=== PATIENT | female | born 1975 | race Caucasian/White ===

== ENCOUNTER 2016-07-19 06:03 | Inpatient (IN) | payer OTHER ==
--- NOTE | 2016-07-18 14:45 | HP ---
DATE OF CLINIC: 07/04/2016 MAGDA RUVALCABA : 1975 PLANNED PROCEDURE: Left Total Hip Arthroplasty DATE OF SURGERY: July 19, 2016 SURGEON: Magdaleno Fisher M.D. HISTORY OF PRESENT ILLNESS Magda Ruvalcaba is a 40 year old female. * Medication list reviewed with patient allergy list reviewed with patient. This is a 40-year-old female with persistent left hip pain. She states that it has been continuing to really limit her ability both to work and to do the activities that she desires in her social life. She is interested in pursuing total hip arthroplasty to address these limitations. She has been working on cutting back on her smoking and trying to get some of her other medical issues under better control in preparation for surgery sometime in July 2016. She currently rates her pain about a 3/10, localizes all of it to her left hip. After discussion and review of treatment options, both operative and non-operative, she has elected to proceed with surgery and presents today preoperatively. PAST MEDICAL AND SURGICAL HISTORY: Her past medical and surgical history is unchanged. She has cut back significantly on the amount that she is smoking and is trying to get her medications under better control. CURRENT MEDICATION * Lisinopril-Hydrochlorothiazide 20-12.5 MG Tablet take 1 tablet by mouth once daily, 30 days, 3 refills * Triamcinolone Acetonide 0.1 % Cream Apply twice daily to affected area, 0 days, 0 refills * Venlafaxine HCl ER 150 MG Tablet, extended-release 24 hour TB24, take 1 tablet by mouth daily, 30 days, 2 refills PAST MEDICAL/SURGICAL HISTORY Reported: No recent change in medical history. LMP: 3 days of flow, regular 28-30 days. Menses started age 14. No history of abnormal PAP. Medical: History of Arthritis, Depression, and Hypertension. Surgical / Procedural: Prior surgery Tubal ligation 11/2006. Physical Trauma: Open reduction internal fixation ORIF at age 17. : 2 and para 2. Other: Cervical Pap smear 1999 Depression/Anxiety Left hip fracture age 17 Tubal ligation Psoriasis. SOCIAL HISTORY Social history unchanged. Behavioral: Caffeine use 1-2 cups daily, current smoker 1/2 pack/day, and smoking status: Current everyday smoker. Alcohol: Alcohol use 1/month or less. Drug Use: Drug use -- marijuana edibles. Home Environment: Lives alone with boyfriend. 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 Sexual: control method: tubal ligation. Has a boyfriend. Two children aged 10 and 8 years. 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 ALLERGIES * Onions * Wellbutrin Reaction: Hypertensive FAMILY HISTORY 2 children living Father: Diabetes, [place] (first time in 40s), CVA Mother: Good health Sister: Diabetes Family medical history Father: Diabetes, Stroke REVIEW OF SYSTEMS No recent constitutional symptoms to include fevers and chills. No cardiovascular symptoms to include chest pain or palpitations. No respiratory symptoms to include shortness of breath or recent infections. PHYSICAL FINDINGS * Vitals taken 07/04/2016 03:57 pm BP-Sitting L 142/99 mmHg Pulse Rate-Sitting 81 bpm Temp-Oral 97.9 F Height 65 in Weight 187 lbs 3.2 oz Body Mass Index 31.2 kg/m2 Body Surface Area 1.92 m2 Pain Level 6 Ears, Nose, Throat: * ENT: normal. Lungs: * Clear to auscultation. Cardiovascular: Heart Rate and Rhythm: * Normal. Abdomen: * Normal. Neurological: Motor: * Dominant Hand = Right Hand. Patient is a well-developed, well-nourished female in no acute distress. They are awake, alert and conversant throughout the encounter. CARDIOVASCULAR: Intact peripheral pulses on bilateral lower extremities. No significant edema on inspection of bilateral lower extremities. NEUROLOGIC: Patient had intact coordinated composite motion of the bilateral lower extremities and sensation intact to light touch in all distributions of bilateral lower extremities. PSYCHIATRIC: Patient was oriented to person, place and time and displayed appropriate mood and affect during the encounter. SKIN: Exam of the skin on bilateral lower extremities showed no significant scars, lesions, rashes or masses. FOCUSED MUSCULOSKELETAL EXAM: The patient has antalgic gait favoring her left side with a mild Trendelenburg lurch. Normal resting station of the hips, knees and ankles. Her left hip shows no erythema, ecchymosis or swelling. She is tender to palpation in the groin crease and at the greater trochanter. Limited range of motion with 5 degrees of extension from neutral, 80 degrees of flexion. She is an obligate external rotator. She abducts about 15 degrees with her hip in full extension and she can do a straight leg raise only a few centimeters off of the table. This gives her significant pain in her groin crease. Within her range of motion her strength is 5/5 without any evidence of instability. She is normal resting tone and well perfused legs and normal sensation. IMAGING No new x-rays today. Previous films show [id number] arthrosis with significant deformity of her proximal femur secondary to a completed femoral neck stress fracture. She also has subchondral cysts and significant osteophyte formation on the acetabular side. ASSESSMENT A 40-year-old female eager to proceed with a left total hip arthroplasty. PREVIOUS TESTS * Test: CBC NO DIFF Report Date: 06/28/2016 WBC 9.1 10*3/mL MCV 83.0 fL RBC 5.07 10*6/uL MCH 29.8 pg MCHC 35.9 g/dL RDW 12.4 % PLATELET COUNT 367 10*3/mL HCT 42.1 % HGB 15.1 g/L * Test: COMPREHENSIVE METABOLIC PANEL Report Date: 06/28/2016 ALT/SGPT 15 U/L ALBUMIN 4.2 g/dL ALB/GLOB RATIO 1.4 BUN 12 mg/dL BUN/CREAT RATIO 24 High CALCIUM 9.3 mg/dL GLUCOSE 88 mg/dL CREATININE 0.5 mg/dL Low SODIUM 138 meq/L POTASSIUM 4.1 meq/L CHLORIDE 103 meq/L CARBON DIOXIDE 27 meq/L ANION GAP 12 meq/L TOT PROTEIN 7.2 g/dL GLOBULIN 3.0 g/dL BILI,TOTAL 0.4 mg/dL AST/SGOT 14 U/L ALK PHOSPHATASE 57 U/L GFR 138 High * Test: URINALYSIS WITH MICROSCOPIC Report Date: 06/28/2016 EPITHELIAL CELL 5-10 WBC 5-10 GLUCOSE NEGATIVE BACTERIA 1+ PH,URINE 5.0 SPEC. GRAVITY 1.015 KETONE NEGATIVE NITRITE NEGATIVE RBC 1-2 BLOOD TRACE BILIRUBIN NEGATIVE APPEARANCE CLEAR PROTEIN NEGATIVE COLOR YELLOW LEUK ESTERASE 2+ UROBILINOGEN NORMAL AMORPH SEDIMENT FEW * Test: PROTHROMBIN TIME Report Date: 06/28/2016 PROTIME 9.4 s INR 0.90 * Test: PARTIAL THROMBOPLASTIN TIME Report Date: 06/28/2016 APTT 24.6 s * Test: MRSA SCREEN Report Date: 06/29/2016 MRSA SCREEN NEGATIVE * Test: MSSA SCREEN Report Date: 06/29/2016 MSSA SCREEN NEGATIVE FOR STAPHYLOCOCCUS AUREUS THERAPY * Patient not eligible for fall risk assessment. PLAN * Unilateral post-traumatic osteoarthritis, left hip OxyCONTIN 10 MG T12A, Take 1 tablet by mouth every 12 hours for baseline pain control; no refills, 10 days, 0 refills OxyCODONE HCl 5 MG TABS, Take 1-2 tablets by mouth every 4-6 hours as needed for severe breakthrough pain. Call 3 days prior to running out of meds for refills., 14 days, 0 refills TraMADol HCl 50 MG TABS, Take 1-2 tabs by mouth every 6-8 hours as needed for moderate breakthrough pain. Call 3 days prior to running out for refills., 14 days, 0 refills * Total hip replacement -Left CARE TEAM Rachelle Sands, DNP SURGICAL CONSENT We have discussed surgical options including left GAGAN and non-operative management. The patient was counseled in detail regarding the diagnosis, treatment options available, prognosis of each treatment option and the potential risks and complications. The risks of surgery include, but are not limited to, anesthetic , neurovascular complications, pulmonary embolism, deep vein thrombosis, wound dehiscence, failure of any or all of the discussed procedures, infection of the joint or surrounding soft tissue, need for revision surgery, chronic pain, limitations in activities of daily living, inability to return to work, and loss of normal range of motion or functional use of the extremity. There is the possibility of failure over time that may require additional operative or non-operative treatment. The patient acknowledged that there are a number of perioperative risks not mentioned here and would still like to proceed. The patient is aware of and understands these risks, and wishes to proceed with the proposed surgical procedure and other procedures as indicated at the time of surgery. We will have the patient see their PCP for a preoperative medical risk assessment. The preoperative instructions were reviewed with the patient and all questions were answered. PB/sg
[~2016-07-19 06:03] MED LIST: CEFAZOLIN SODIUM 2 GRAM DUPLEX 50 ML IV PRN; CELECOXIB 200 MG CAPSULE ONE; CELECOXIB 200 MG CAPSULE PO ONE; CLONIDINE HCL 0.1 MG/24 HR (7 DAY PATCH) TD ONE; CLONIDINE HCL 0.1 MG/24 HR (7 DAY PATCH) TD SCH; FAMOTIDINE 20 MG TABLET ONE; FAMOTIDINE 20 MG TABLET PO ONE; GABAPENTIN 600 MG TABLET ONE; GABAPENTIN 600 MG TABLET PO ONE; IV START KIT ONE; LACTATED RINGERS 1,000 ML ONE; ONDANSETRON 4 MG/2ML 2 ML VIAL IV ONE; ONDANSETRON 4 MG/2ML 2 ML VIAL ONE; OXYCODONE HCL 10 MG TAB.SR PO ONE; TRAMADOL HCL 50 MG TABLET ONE; TRAMADOL HCL 50 MG TABLET PO ONE
[2016-07-19] MEDS ORDERED: TRANEXAMIC ACID 1,000 MG in SODIUM CHLORIDE 0.9% 100 ML IV PRN (07:50)
[2016-07-19] MEDS ORDERED: BUPIVACAINE 0.25% (MDV) 24 ML, MORPHINE SULFATE 8 MG, EPINEPHRINE 0.3 MG in SODIUM CHLO... IF PRN (07:50)
[2016-07-19] MEDS ORDERED: POLYMYXIN B SULFATE 500,000 UNITS, BACITRACIN 25,000 UNITS in SODIUM CHLORIDE 3 L IRRIG... IR PRN (07:50)
[2016-07-19] MEDS ORDERED: BUPIVACAINE 0.25% (MDV) 20 ML in SODIUM CHLORIDE 0.9% FLUSH 20 ML IF PRN (07:50)
[2016-07-19] MEDS ORDERED: MIDAZOLAM HCL 1 MG/ML 2ML VIAL ONE (08:32)
[2016-07-19] MEDS ORDERED: MIDAZOLAM HCL 5 MG/5 ML VIAL ONE ×3 (08:44→11:10)
[2016-07-19] MEDS ORDERED: FENTANYL 100 MCG/2 ML VIAL ONE (08:44)
[2016-07-19] MEDS ORDERED: LABETALOL HCL 5 MG/ML 20ML VIAL IV PRN (09:06)
[2016-07-19] MEDS ORDERED: PROMETHAZINE HCL 25 MG/ML VIAL IM PRN (09:06)
[2016-07-19] MEDS ORDERED: ONDANSETRON 4 MG/2ML 2 ML VIAL IV PRN ×2 (09:06→12:56)
[2016-07-19] MEDS ORDERED: ATROPINE SULFATE 0.4 MG/1 ML VIAL IV PRN (09:06)
[2016-07-19] MEDS ORDERED: MEPERIDINE 25 MG/ML SYRINGE IV PRN (09:06)
[2016-07-19] MEDS ORDERED: NALOXONE HCL 0.4 MG/ML VIAL IV PRN (09:06)
[2016-07-19] MEDS ORDERED: MORPHINE SULFATE 4 MG/ML SYRINGE IV PRN (09:06)
[2016-07-19] MEDS ORDERED: LACTATED RINGERS 1,000 ML IV SCH (09:15)
[2016-07-19] MEDS ORDERED: DIPHENHYDRAMINE HCL 50 MG/1 ML VIAL ONE (10:41)
[2016-07-19] MEDS ORDERED: BUPIVACAINE 0.75% SPINAL AMPUL 2 ML ONE (10:41)
[2016-07-19] MEDS ORDERED: FAMOTIDINE 10 MG/ML 2ML VIAL ONE (10:41)
[2016-07-19] MEDS ORDERED: METOCLOPRAMIDE HCL 5 MG/ML 2ML VIAL ONE (10:41)
[2016-07-19] MEDS ORDERED: SPINAL PROCEDURAL TRAY 1 EACH ONE (10:41)
--- NOTE | 2016-07-19 11:21 | RAD ---
AP PELVIS HISTORY: Intraoperative imaging. Frontal view of the pelvis. POSTPROCEDURAL CHANGE: Postsurgical change with surgical remodeling of the left acetabulum and resection of the left femoral head. Soft tissue gas is noted. IMPRESSION: Intraoperative imaging of the pelvis for procedural planning.
--- NOTE | 2016-07-19 11:56 | RAD ---
PELVIS COMPARISON: Left hip, 06/21/2015 and bone length study 04/17/2016. Left hip intraoperative radiograph 07/19/2016. HISTORY: Immediately postop left total hip arthroplasty. FINDINGS: Views: AP pelvis. Bones: Normal. Joints: Satisfactory appearance of the left hip total uncemented arthroplasty. Soft tissues: Incision filled with air lateral to the left hip, extending to the prosthesis. IMPRESSION: 1. Satisfactory positioning of the left total hip uncemented arthroplasty.
--- NOTE | 2016-07-19 12:07 | PCMBPN ---
Brief Post Op Note: Date of Procedure: 07/19/16 Start Time: 929 Preoperative Diagnosis: 1. left hip posttraumatic arthritis Postoperative Diagnosis: 1. Same Procedure: left total hip arthroplasty Surgeon: Magdaleno Fisher MD Assist: Leonel Mg PA-C Anesthesia: Haven Montiel Findings: as above Condition: stable to PACU Complications: intraoperative proximal femur fracture treated with 2 cerclage cables IV Fluids: 2500 mLs of LR Urine Output: 100 mLs Estimated Blood Loss: 500 mLs Tourniquet Time: none Specimens: none Implants: DePuy [place] cup 56 mm, 56/36 ceramic liner, Trilock 5 high offset stem, 36 mm ceramic head +8.5 Drains: none Magdaleno Fisher MD
[2016-07-19] MEDS ORDERED: LACTATED RINGERS 1,000 ML ONE (12:08)
[2016-07-19] MEDS ORDERED: TRAMADOL HCL 50 MG TABLET PO PRN (12:56)
[2016-07-19] MEDS ORDERED: HYDROXYZINE PAMOATE 25 MG CAPSULE PO PRN (12:56)
[2016-07-19] MEDS ORDERED: HYDROMORPHONE HCL 0.5 MG/0.5 ML SYRINGE IV PRN (12:56)
[2016-07-19] MEDS ORDERED: KETOROLAC TROMETHAMINE 30 MG/ML 1 ML VIAL IV PRN (12:56)
[2016-07-19] MEDS ORDERED: CALCIUM CARBONATE 500 MG TAB.CHEW PO PRN (12:56)
[2016-07-19] MEDS ORDERED: OXYCODONE HCL 5 MG TABLET PO PRN (12:56)
[2016-07-19] MEDS ORDERED: TRAZODONE HCL 50 MG TABLET PO PRN (12:56)
--- NOTE | 2016-07-19 13:51 | RAD ---
PELVIS 07/19/2016 12:21 COMPARISON: Pelvis one view, 07/19/2016 11:04 HISTORY: Postop left hip uncemented arthroplasty. FINDINGS: Views: AP pelvis. Bones: Normal. Joints: Satisfactory positioning of the left total hip arthroplasty. Soft tissues: Normal postoperative appearance with lateral skin sendy. IMPRESSION: 1. Satisfactory appearance of the left total hip uncemented arthroplasty.
[2016-07-19 15:31] VITALS: BMI 31.1
[2016-07-19] MEDS ORDERED: PUMP TUBING ONE (18:13)
[2016-07-19] MEDS: CEFAZOLIN SODIUM 1 GRAM PREMIX 1 G in Premix (D5W) 50 ml 1 EACH IV SCH (18:24)
[2016-07-19] MEDS: D5 1/2NS with 20 mEq KCL 1,000 ML IV SCH (18:25)
[2016-07-19] MEDS: ACETAMINOPHEN 500 MG TABLET PO SCH ×2 (19:52→19:59)
[2016-07-19] MEDS: DOCUSATE SODIUM 100 MG CAPSULE PO SCH (20:06)
[2016-07-19] MEDS: OXYCODONE HCL 10 MG TAB.SR PO SCH (20:08)
[2016-07-19] MEDS: ASCORBIC ACID 500 MG TABLET PO SCH (20:08)
[2016-07-20] MEDS: D5 1/2NS with 20 mEq KCL 1,000 ML IV SCH (00:29)
[2016-07-20] MEDS: ACETAMINOPHEN 500 MG TABLET PO SCH ×4 (01:33→20:36)
[2016-07-20] MEDS: CEFAZOLIN SODIUM 1 GRAM PREMIX 1 G in Premix (D5W) 50 ml 1 EACH IV SCH (01:33)
[2016-07-20] MEDS ORDERED: REMOVE PATCH 1 EACH UNIT TD SCH (05:45)
[2016-07-20 06:44] LABS: HEMOGLOBIN 9.5 gm/l (12.0-16.0); MEAN CELL VOLUME 84.4 fl (81.0-99.0); MEAN CORPUSCULAR HEMOGLOBIN 29.7 pg (27.0-31.0); MEAN CORPUSCULAR HGB CONC 35.2 g/dl (33.0-37.0); RED CELL DISTRIBUTION WIDTH 12.2 % (11.5-14.5)
[2016-07-20 06:59] LABS: CALCIUM 7.9 mg/dL (8.6-10.3)
[2016-07-20] MEDS: VENLAFAXINE HCL XR 150 MG CAPSULE.DR PO SCH ×2 (07:36→10:00)
--- NOTE | 2016-07-20 08:32 | PDOC43 ---
- Subjective Findings: POD1 Left GAGAN. Moderate pain today left hip with leg paresthesia. Subjective: Reports Pain Tolerable, Denies Chest Pain, Denies Shortness of Breath, Denies Nausea, Denies Vomiting - Objective Vital Signs Temperature 98.2 F 07/20/16 08:00 Pulse Rate 90 07/20/16 08:00 Respiratory Rate 18 07/20/16 08:00 Blood Pressure 132/98 07/20/16 08:00 O2 Saturation by Pulse Oximetry 100 07/20/16 08:00 Oxygen Delivery Method Nasal Cannula Oxygen Flow Rate 2 Laboratory 07/20/16 06:00 07/20/16 06:00 07/20/16 06:00 RBC 3.20 L Estimated GFR 137 H Calcium 7.9 L Active Medication Orders Category Date Time Status Acetaminophen [Tylenol] Med 07/20/16 02:00 Active 1,000 mg PO Q6H Ascorbic Acid [Vitamin C] Med 07/19/16 21:00 Active 500 mg PO BID Aspirin (Enteric Coated) [Ecotrin] Med 07/20/16 09:00 Active 325 mg PO DAILY Bisacodyl [Dulcolax] Med 07/22/16 11:55 Active 10 mg [place] DAILY PRN Calcium Carbonate [Tums] Med 07/19/16 12:56 Active 1,000 - 2,000 mg PO Q2H PRN Docusate Sodium [Colace] Med 07/19/16 21:00 Active 100 mg PO BID Hydrochlorothiazide Med 07/20/16 09:00 Active 12.5 mg PO DAILY Hydromorphone HCl [Dilaudid] Med 07/19/16 12:56 Active 0.5 mg IV Q1H PRN Hydroxyzine Pamoate [Vistaril] Med 07/19/16 12:56 Active 25 - 50 mg PO Q4H PRN Ketorolac Tromethamine [Toradol] Med 07/19/16 12:56 Active 30 mg IV Q6H PRN Lisinopril [Prinivil] Med 07/20/16 09:00 Active 1 mg PO QAM Magnesium Hydroxide [Milk of Magnesia] Med 07/20/16 11:55 Active 30 ml PO DAILY PRN Multivitamins [One-A-Day] Med 07/20/16 09:00 Active 1 tab PO DAILY Ondansetron 4 mg/2ml Vial [Zofran] Med 07/19/16 12:56 Active 4 - 6 mg IV Q6H PRN Oxycodone HCl [Roxicodone] Med 07/19/16 12:56 Active 5 - 10 mg PO Q4H PRN Oxycodone Sr [Oxycontin] Med 07/19/16 21:00 Active 10 mg PO Q12HR Remove Patch Med 07/20/16 11:55 Once 1 each TD X1 ONE Sodium Chloride 0.9% Flush [Normal Saline 10ml Flush] Med 07/19/16 12:56 Active 10 - 50 ml IV PRN PRN Tramadol HCl [Ultram] Med 07/19/16 12:56 Active 50 mg PO Q6H PRN Trazodone HCl [Desyrel] Med 07/19/16 12:56 Active 25 mg PO BEDTIME PRN Venlafaxine HCl Xr [Effexor Xr] Med 07/20/16 09:00 Active 150 mg PO QAM Intake and Output 07/18/16 07/19/16 07/20/16 23:59 23:59 23:59 Intake Total 4750 1974 Output Total 820 550 Balance 3930 1424 General: Afebrile Lungs: Normal Air Movement Skin: Normal Color, Warm, Dry - Left Lower Extremity Incision: Dressing Clean/Dry/Intact, Well Approximated, Nnamdi Intact, No Dressing Saturated, No Drainage, No Erythema Motor: Extensor Hallucis Longus: 5/5, Tibialis Anterior: 5/5, Gastrocnemius: 5/5 , Peroneals: 5/5 Gross Sensation to Light Touch: Present: Deep Peroneal Nerve, Superficial Peroneal Nerve - Problems (1) Status post total hip replacement, left Status: Acute - Additional Comments POD1 Left GAGAN. Moderate left hip pain with leg paresthesia. Sensation intact to touch. 1. Physical Therapy: WBAT with FWW. 2. Pain Control: Multimodal pain control as needed. 3. DVT Prophylaxis: ASA 325mg daily, mobilization 4. Disposition: Plan for discharge home Sunday. 5. Medical Issues: No new medical problems.
[2016-07-20] MEDS ORDERED: MULTIVITAMINS 1 TAB TABLET PO SCH (09:00)
[2016-07-20] MEDS ORDERED: LISINOPRIL 20 MG TABLET PO SCH (09:00)
[2016-07-20] MEDS: MULTIVITAMINS 1 TAB TABLET PO SCH (09:50)
[2016-07-20] MEDS: OXYCODONE HCL 10 MG TAB.SR PO SCH ×2 (09:50→20:36)
[2016-07-20] MEDS: ASCORBIC ACID 500 MG TABLET PO SCH ×2 (09:50→20:36)
[2016-07-20] MEDS: DOCUSATE SODIUM 100 MG CAPSULE PO SCH ×2 (09:50→20:36)
[2016-07-20] MEDS: ASPIRIN (ENTERIC COATED) 325 MG TABLET.EC PO SCH (09:50)
[2016-07-20] MEDS: HYDROCHLOROTHIAZIDE 12.5 MG CAP PO SCH (09:50)
[2016-07-20] MEDS: LISINOPRIL 20 MG TABLET PO SCH (10:00)
[2016-07-20] MEDS ORDERED: MAGNESIUM HYDROXIDE 30 ML UDCUP PO PRN (11:55)
[2016-07-20] MEDS ORDERED: REMOVE PATCH 1 EACH UNIT TD ONE (11:55)
[2016-07-21] MEDS: ACETAMINOPHEN 500 MG TABLET PO SCH ×3 (02:14→15:00)
[2016-07-21 06:09] LABS: HEMATOCRIT 26.2 % (37.0-47.0); HEMOGLOBIN 9.1 gm/l (12.0-16.0)
[2016-07-21 07:30] VITALS: BP 122/77
--- NOTE | 2016-07-21 08:30 | PDOC43 ---
- Subjective Subjective: Reports Pain Tolerable - Objective Vital Signs Temperature 98.1 F 07/21/16 07:29 Pulse Rate 85 07/21/16 07:29 Respiratory Rate 16 07/21/16 07:29 Blood Pressure 122/77 07/21/16 07:29 O2 Saturation by Pulse Oximetry 98 07/21/16 07:29 Oxygen Delivery Method Room Air Oxygen Flow Rate 0 Laboratory 07/21/16 05:30 07/20/16 06:00 Active Medication Orders Category Date Time Status Acetaminophen [Tylenol] Med 07/20/16 02:00 Active 1,000 mg PO Q6H Ascorbic Acid [Vitamin C] Med 07/19/16 21:00 Active 500 mg PO BID Aspirin (Enteric Coated) [Ecotrin] Med 07/20/16 09:00 Active 325 mg PO DAILY Bisacodyl [Dulcolax] Med 07/22/16 11:55 Active 10 mg [place] DAILY PRN Calcium Carbonate [Tums] Med 07/19/16 12:56 Active 1,000 - 2,000 mg PO Q2H PRN Docusate Sodium [Colace] Med 07/19/16 21:00 Active 100 mg PO BID Hydrochlorothiazide Med 07/20/16 09:00 Active 12.5 mg PO DAILY Hydromorphone HCl [Dilaudid] Med 07/19/16 12:56 Active 0.5 mg IV Q1H PRN Hydroxyzine Pamoate [Vistaril] Med 07/19/16 12:56 Active 25 - 50 mg PO Q4H PRN Lisinopril [Prinivil] Med 07/20/16 10:00 Active 20 mg PO QAM Magnesium Hydroxide [Milk of Magnesia] Med 07/20/16 11:55 Active 30 ml PO DAILY PRN Multivitamins [One-A-Day] Med 07/20/16 09:00 Active 1 tab PO DAILY Ondansetron 4 mg/2ml Vial [Zofran] Med 07/19/16 12:56 Active 4 - 6 mg IV Q6H PRN Oxycodone HCl [Roxicodone] Med 07/19/16 12:56 Active 5 - 10 mg PO Q4H PRN Oxycodone Sr [Oxycontin] Med 07/19/16 21:00 Active 10 mg PO Q12HR Sodium Chloride 0.9% Flush [Normal Saline 10ml Flush] Med 07/19/16 12:56 Active 10 - 50 ml IV PRN PRN Sodium Chloride 0.9% Flush [Normal Saline 10ml Flush] Med 07/20/16 17:00 Active 10 ml IV Q8HR Tramadol HCl [Ultram] Med 07/19/16 12:56 Active 50 mg PO Q6H PRN Trazodone HCl [Desyrel] Med 07/19/16 12:56 Active 25 mg PO BEDTIME PRN Venlafaxine HCl Xr [Effexor Xr] Med 07/20/16 09:00 Active 150 mg PO QAM Intake and Output 07/19/16 07/20/16 07/21/16 23:59 23:59 23:59 Intake Total 4750 2174 100 Output Total 820 1310 600 Balance 3930 864 -500 General: Afebrile Lungs: Normal Air Movement Skin: Normal Color, Warm, Dry - Left Lower Extremity Incision: Dressing Clean/Dry/Intact, Well Approximated, Nnamdi Intact, No Erythema Motor: Extensor Hallucis Longus: 5/5, Tibialis Anterior: 5/5, Gastrocnemius: 5/5 , Peroneals: 5/5, Quadriceps: 3/5 Gross Sensation to Light Touch: Present: Deep Peroneal Nerve, Superficial Peroneal Nerve, Medial Plantar Nerve, Lateral Plantar Nerve - Problems (1) Status post total hip replacement, left Status: Acute - Additional Comments POD1 Left GAGAN. Moderate left hip pain with improving leg paresthesia. Sensation intact to touch. 1. Physical Therapy: WBAT with FWW. 2. Pain Control: Multimodal pain control as needed. 3. DVT Prophylaxis: ASA 325mg daily, mobilization 4. Disposition: Plan for discharge home today. 5. Medical Issues: No new medical problems.
--- NOTE | 2016-07-21 08:35 | PDOC5 ---
ADMIT DATE: 07/19/16 DISCHARGE DATE: 07/21/16 ADMISSION DIAGNOSES: Left Hip Arthritis PROCEDURES PERFORMED THIS HOSPITALIZATION: Left Total Hip Replacement SURGEON:Magadleno Fisher MD CONSULTATIONS: None BRIEF HISTORY:This is a 41 year old with left hip osteoarthritis who underwent a total hip replacement with Dr. Fisher on 07/19/16. BRIEF HOSPITAL COURSE: Patient has been recovering on MED/Surg and progressing with PT and appears ready for discharge home today. Her postop pain is controlled and patient feels ready for discharge home today. - Discharge Diagnosis (1) Status post total hip replacement, left Status: Acute - Discharge Plan Additional Instructions: PROCEDURE: Left total hip arthroplasty (replacement) 1.) Dressings: may remove dressings on POD#4 and shower normally, let water run over incision and pat dry, but do not submerge or scrub incision. Cover with clean dressing and then change dressing every day until completely dry. 2.) Activity: may bear weight as tolerated with assistive device at all times. Outpatient PT as previously scheduled. Daily exercises as instructed by PT. Posterior hip precautions at all times as instructed. 3.) Medications: a.) Oxycontin: long-acting pain medication taken morning and evening for 10 days, no refills b.) Tramadol: as-needed pain medication for mild to moderate breakthrough pain (call for refills 3-4 days before running out) c.) Oxycodone: as-needed pain medication for severe breakthrough pain (call for refills 3-4 days before running out) d.) Aspirin 325 mg (over-the counter): one tab daily for 4 weeks for prevention of blood clots e.) Colace: stool softener to help prevent constipation, taken twice a day as long as you are on narcotics; if continued constipation, get Magnesium Citrate [id number] and use per instructions every 12 hours until you have a bowel movement. 4.) Followup: August 01 at 9:00 AM at the [facility] with Leonel Mg PA-C. Call [phone] to confirm your appointment and location. 5.) Questions: call my office ([phone]) with any questions or concerns. Go to ED or call 911 for any acute changes in health status or emergencies. Magdaleno Fisher MD Follow-Up: Skyler Mg PA [Physician Manager Laboratory] - 08/01/16 9:45 am
[2016-07-21] MEDS: DOCUSATE SODIUM 100 MG CAPSULE PO SCH (08:40)
[2016-07-21] MEDS: VENLAFAXINE HCL XR 150 MG CAPSULE.DR PO SCH (08:40)
[2016-07-21] MEDS: ASCORBIC ACID 500 MG TABLET PO SCH (08:40)
[2016-07-21] MEDS: ASPIRIN (ENTERIC COATED) 325 MG TABLET.EC PO SCH (08:40)
[2016-07-21] MEDS: HYDROCHLOROTHIAZIDE 12.5 MG CAP PO SCH (08:40)
[2016-07-21] MEDS: MULTIVITAMINS 1 TAB TABLET PO SCH (08:40)
[2016-07-21] MEDS: OXYCODONE HCL 10 MG TAB.SR PO SCH (08:40)
[2016-07-21] MEDS: LISINOPRIL 20 MG TABLET PO SCH (08:40)
--- NOTE | 2016-07-21 13:39 | OP ---
Damaris WHITLEY : 1975 [id number] DATE OF SERVICE: July 19, 2016 PREOPERATIVE DIAGNOSIS: Left hip posttraumatic osteoarthritis. POSTOPERATIVE DIAGNOSIS: Left hip posttraumatic osteoarthritis. PROCEDURE PERFORMED: LEFT TOTAL HIP ARTHROPLASTY. SURGEON: Magdaleno Fisher M.D. ACID FILLER: Skyler Mg P.A.-C. ANESTHESIA: Haven Montiel C.R.N.A. SPECIMENS: No material was sent to the laboratory. ESTIMATED BLOOD LOSS: 500 mL. FLUIDS REPLACED: 2500 mL of crystalloid. URINE OUTPUT: 100 mL. TOURNIQUET: None. IMPLANTS: DePuy Winnfield cup size 56, size TriLock stem size 5 high offset. We used a neutral 36 for a 56 ceramic liner and a 36 + 8.5 ceramic head. INDICATIONS: Patient is a 41-year-old female with severe left hip osteoarthritis secondary to a prior completed femoral neck stress fracture. This has failed to respond to a course of nonoperative measures. Patient has exam and radiographic findings, which support this diagnosis. In order to restore patient's ability to participate in desired level of activities they were offered a total hip arthroplasty. The risks, benefits and alternatives of therapy were discussed with the patient at length and they elected to proceed with surgery. The patient underwent preoperative clearances. Informed consent was obtained and documented in the chart and the patient was placed on the schedule at the first available convenience. DESCRIPTION OF PROCEDURE: The patient was identified in the pre-operative holding area where they were marked with an indelible marker by the operating surgeon. Patient was taken to the operating room where they underwent a spinal anesthetic and then was positioned on the left side using a pegboard for intraoperative positioning. An axillary roll was placed and all bony prominences were padded. The patient was prepped and draped in the usual sterile fashion for surgery and received perioperative antibiotics and tranexamic acid. A final operative time out was performed and confirmed by all members of the operative team. A standard posterior approach to the hip was used with dissection carried down to the fascia overlying the greater trochanter. The fascia was divided and a Charnley retractor was placed. The trochanteric bursa was excised. The sciatic nerve was identified and protected throughout the procedure. The leg was taken into internal rotation and the piriformis tendon with elevated out of the piriformis fossa and tagged for later repair and then an L-shaped arthrotomy was made dividing the capsule as far anteriorly as we could get on the neck and then taking up a posterior flap that involved the posterior capsule and the remainder of the short external rotators. At this point the hip was dislocated posteriorly and the level of our neck cut was marked out with a neck cut to guide. A neck cut was made with an oscillating saw and the head was excised. The anterior capsule was excised using a Bovie as was the entirety of the labrum and anterior and posterior and inferior retractors were placed. We started reaming with a 52 mm reamer to get medial to the true floor of the acetabulum and then reamed up to a 55 mm which gave us a good circumferential bleeding bone and appropriate fit. A 55 mm trial was placed and we were satisfied with the fit of the acetabulum. This was exchanged then for a 56 mm Winnfield cup with cluster holes. This was impacted in place and had excellent stability and position. Some overhanging bone in the anterior portion of the cup was excised using an osteotome and then a domed hole plug was placed and the neutral liner was impacted into the cup. At this point the anterior, posterior and inferior retractors were removed. The femoral neck elevator was placed and access to the proximal femur was obtained using a box osteotome and a canal finder. We broached up until we had good rotational and a longitudinal stability with a size 5 broach and then trialed off of that broach eventually settling on a standard offset with a 36 mm head at, +8.5 neck length. This gave us excellent stability throughout. Anatomic range of motion did not show excessive tightness in extension, showed no tightness in the sciatic nerve and appropriately matched the opposite leg length. At this point all the trials were removed from the femur. During the final positioning of the broach it was noted that a small split had been created in the calcar of the femur, after the trailing was completed and a plan was made for cerclage tables to repair this periprosthetic fracture. The canal was copiously irrigated with a pulse lavage and the final stem was impacted into place. A 36 mm +8.5 ceramic head was then tapped on to the trunnion and the hip was reduced. Again, we were satisfied with our range of motion, leg length and stability. Two 1.6 mm Dall-Miles cables were passed in circumferential fashion around the proximal femur, one above the lesser trochanter and one below. These were tensioned and crimped in place providing appropriate stability for the stem. Three drill holes were made in the posterior, superior greater trochanter and the sutures that had been previously placed in the piriformis and the posterior capsule were used to repair these structures back to the femur. The hip was placed into a slightly abducted and externally rotated position. The Charnley retractors were removed. Everything was copiously irrigated with sterile saline and we closed the fascia with a running #0 Quill, the subcutaneous fat with a running #0 Vicryl, the subcutaneous tissues with interrupted sutures of #2-0 Vicryl and the skin with sendy. A sterile dressing of Xeroform, fluffs, ABDs and Medipore tape was applied. The drapes were removed. The patient was repositioned supine, transferred to a stretcher and taken postoperatively to the post anesthesia care unit in stable condition. There were no observed intraoperative conditions during this procedure. Job [id number] Cc: [facility]
[2016-07-22] MEDS ORDERED: BISACODYL 10 MG SUP PR PRN (11:55)
== END 2016-07-21 15:05 | disposition home or self-care (01) | DRG 470 ==
LOC: OR 06:03 → MS 13:16
PROVIDERS: ADMIT Orthopaedic Surgery; ATTEND Orthopaedic Surgery
PROC: 0SRB03A Replacement of Left Hip Joint with Ceramic Synthetic Substitute, Uncemented, Open Approach (ICD-10-PCS; principal; 2016-07-19)
DX: M16.52 Unilateral post-traumatic osteoarthritis, left hip (principal); F32.9 Major depressive disorder, single episode, unspecified; I10 Essential (primary) hypertension; F41.9 Anxiety disorder, unspecified; F17.210 Nicotine dependence, cigarettes, uncomplicated